=== PATIENT | female | born 1940 | race Caucasian/White ===

== ENCOUNTER 2021-12-27 22:04 | Emergency (ER) | payer MEDICARE, SELFPAY ==
[2021-12-27 22:08] VITALS: BP 176/86; PULSE 68; RESP 18; TEMP 36.6; O2SAT 99; BMI 28.0
[2021-12-27 22:09] VITALS: BP 176/86; PULSE 68; RESP 18; TEMP 36.6; O2SAT 99
[2021-12-27 22:31] LABS: Bacteria 0 SEEN /hpf (None Seen); Mucous, Urine 0 SEEN /hpf (<or=2+); Red Blood Cells-Urine 0 SEEN /hpf (0-5); Squamous Epithelial Cells - UA 0 SEEN /hpf (5-10)
--- NOTE | 2021-12-27 22:32 | EDS_ITS ---
HPI HPI - Female History of Present Illness Chief Complaint: Complaint Narrative Narrative: 81-year-old female presenting with dysuria. She says she self catheterizes. She gets frequent UTIs. She states that Keflex usually helps. She notes that she is allergic to Bactrim, Macrobid, Augmentin, ciprofloxacin. Patient states that symptoms started today. The symptoms are similar to previous UTIs. She states that she is from [place] and [facility] and does not have a physician locally. No fevers or chills. No nausea or vomiting. No abdominal pain. PFSH PFSH Home Medications cephalexin 500 mg capsule 500 mg PO Q12 #14 caps 12/27/21 [Rx Last Taken Unknown] Allergy/AdvReac Type Severity Reaction Status Date / Time amoxicillin [From Augmentin] Allergy Other Verified 12/27/21 22:08 ciprofloxacin [From Cipro] Allergy Other Verified 12/27/21 22:08 clavulanic acid Allergy Other Verified 12/27/21 22:08 [From Augmentin] nitrofurantoin Allergy Other Verified 12/27/21 22:08 sulfamethoxazole Allergy Other Verified 12/27/21 22:08 [From Bactrim] trimethoprim [From Bactrim] Allergy Other Verified 12/27/21 22:08 ROS ROS ED Constitutional Constitutional ED: Denies chills, fever(s) or sweats Eyes Eyes: Denies blurry vision or change in vision ENT ENT ED: Denies ear pain or sore throat Cardiovascular Cardiovascular: Denies chest pain, palpitations or racing heartbeat Respiratory/Chest Respiratory/Chest: Denies cough, dyspnea or sputum Gastrointestinal Gastrointestinal: Denies abdominal pain, constipation, diarrhea, nausea or vomiting Genitourinary Genitourinary ED: Reports dysuria and urinary frequency; Denies hematuria Musculoskeletal Musculoskeletal: Denies arthralgias, myalgias or neck pain Integumentary Denies abscess, Abrasions or rash Neurologic Neurologic: Denies headache(s), paresthesias or weakness Psychiatric Psychiatric: Denies anxiety, depression, suicidal ideation or suicidal thoughts Endocrine Endocrinology: Denies polydipsia or polyuria EXAM Physical Exam Const Vital Signs: 12/27/21 22:08 12/27/21 22:09 Temperature 98 F 98 F Temperature Source Temporal Temporal Pulse Rate 68 68 Respiratory Rate 18 18 Blood Pressure 176/86 H 176/86 H Blood Pressure Mean 116 116 Pulse Ox 99 99 Oxygen Delivery Method Room Air Room Air General Appearance ED: Negative for pallor HEENT Reports normocephalic, head/scalp atraumatic and moist mucous membranes Eyes PERRL and EOMs intact bilaterally Neck no lymphadenopathy and supple Resp normal respiratory effort and clear to auscultation bilaterally Auscultation: Negative for rales, rhonchi or wheezes Cardio regular rate and regular rhythm GI normal to inspection, nondistended, normoactive bowel sounds and non-distended Narrative: Deferred Back/Spine no CVA tenderness Neuro oriented x3 and CN's II-XII intact bilaterally Sensorium / Orientation: alert Motor Exam: strength 5/5 throughout Psych mental status grossly normal Attitude: No agitated Skin no rashes or lesions noted and no wounds General Skin Exam: Negative for jaundice or pallor MDM MDM MDM Narrative Medical decision making narrative: Patient presents with UTI symptoms. The started this evening. She has been otherwise well. Patient states she gets frequent UTIs because she self catheterizes. She sees a urogynecologist in [place]. She states that Keflex usually helps when she gets a urinary tract infection. Patient denies analgesia or antiemetics. Patient's urinalysis shows 500 leukocyte esterase with greater than 100 PVCs. There is no bacteria or contamination seen. Given the patient is symptomatic and has history of frequent UTIs I will treat her with Keflex. First dose given in ER. Patient given a prescription for Keflex for home. Urine culture sent. Return precautions discussed. Impression: 1. UTI Lab Data Attestation: I reviewed the patient's lab results. Labs: Laboratory Results - last 24 hr 12/27/21 22:25 Urine Color Yellow Urine Clarity Cloudy Urine pH 6.0 Ur Specific [place] 1.010 Urine Protein 100 H Urine Glucose (UA) Normal Urine Ketones Negative Urine Occult Blood 250 H Urine Nitrite Negative Urine Bilirubin Negative Urine Urobilinogen Normal Ur Leukocyte Esterase 500 H Urine RBC 0 SEEN Urine WBC >100 SEEN Ur Squamous Epith Cells 0 SEEN Ur Transition Epith Cell 0 SEEN Urine Bacteria 0 SEEN Urine Mucus 0 SEEN Discharge Plan Triage Chief Complaint: Complaint ED Provider: Paresh Bass Dx/Rx/DC Orders Instructions: ED Cystitis Female Adult Prescriptions: New cephalexin 500 mg capsule 500 mg PO Q12 Qty: 14 0RF Primary Care Provider: NOT,DEFINED Referrals: NOT,DEFINED [Primary Care Provider] - Disposition Disposition: Home, Self Care
[2021-12-27 22:34] LABS: Color, Urine Yellow (Yellow); Glucose, Dipstick Normal (Normal); Ketone-Dipstick Negative (Negative); Leukocyte Esterase-Dipstick 500 /ul (Negative); Nitrite-Dipstick Negative (Negative); Occult Blood-Urine 250 /ul (Negative); Protein-Dipstick 100 mg/dl (Negative); Urine Bilirubin Dipstick Negative (Negative); Urine Clarity Cloudy (Clear); Urine Urobilinogen Normal (Normal)
[2021-12-27 22:42] LABS: White Blood Cells >100 SEEN /hpf (0-5)
[2021-12-27 22:43] LABS: Transitional Epithelial - Ur 0 SEEN /hpf (0-5)
[2021-12-27] MEDS: Cephalexin 250 MG Capsule 500 MG PO (22:57)
== END 2021-12-27 23:09 | disposition home or self-care (01) ==
PROVIDERS: Emergency Provider Student in an Organized Health Care Education/Training Program; Visit Provider Student in an Organized Health Care Education/Training Program
DX: N39.0 Urinary tract infection, site not specified (principal)
CPT/HCPCS: 81001; 87077; 87086; 87088; 87186; 99283